=== PATIENT | female | born 1970 | race Caucasian/White ===

== ENCOUNTER → 2020-06-21 | Outpatient (CLI) | payer BC ==
[~2020-06-21] MED LIST: IOHEXOL 240 MG/ML 50ML VIAL. PO ONE; IOHEXOL 300 MG/ML 100ML VIAL. IV ONE
--- NOTE | 2020-06-21 15:36 | RAD ---
CT of the abdomen and pelvis with IV and oral contrast 06/21/2020 INDICATION: Abdominal pain COMPARISON STUDY: None available. TECHNIQUE: Multidetector CT imaging of the abdomen and pelvis was performed following the administrat ion of IV and oral contrast FINDINGS: The visualized lung bases are unremarkable. Liver, gallbladder, spleen, adrenal glands, kid neys, and the pancreas are unremarkable. There is no bowel obstruction. No evidence of acute inflamma tory change involving visualized bowel is seen. Bladder is grossly unremarkable. There is a mixed cys tic and solid appearance of the left ovary which is mildly enlarged measuring 3.7 x 3.0 x 2.7 cm. Fin dings may reflect an ovarian cyst. Recommend ultrasound evaluation. No acute osseous abnormalities ar e identified. IMPRESSION: Mixed cystic and solid appearance of the left ovary which is mildly enlarged.. Correlate with clinical findings and consider ultrasound evaluation as clinically indicated. CT DOSING PQRS STATEMENT: One or more of the following individualized dose reduction techniques were utilized for this examinat ion: 1. Automated exposure control 2. Adjustment of the mA and/or kV according to patient size 3. Use of iterative reconstruction technique Electronically signed by: Calvin Whelan MD (06/21/2020 3:34 PM) [id number]
== END ==
LOC: CT 12:40
PROVIDERS: ATTEND Obstetrics & Gynecology
DX: R10.31 Right lower quadrant pain (principal); R10.2 Pelvic and perineal pain
CPT/HCPCS: 74177; Q9966; Q9967

== ENCOUNTER → 2020-06-28 | Outpatient (CLI) | payer BC ==
--- NOTE | 2020-06-29 09:36 | RAD ---
US PELVIS W/TV History: Reason: L OVARY CYST / Spl. Instructions: / History: Comparison: CT June 21, 2020 Technique: Grayscale and color Doppler imaging of the pelvis was performed using transabdominal and t ransvaginal technique. Findings: The uterus measures 9.5 x 6.4 x 4.7 cm. Uterus has an unremarkable appearance. The endometrial stri pe measures 6 mm. Reportedly bilateral oophorectomy according to the patient. Left adnexal lesion with several complicated cysts. Largest complex cyst measures 1.5 x 0.8 cm and 1. 6 x 1.0 cm. There is Doppler flow similar to ovarian tissue. IMPRESSION: 1. Left adnexal lesion with several complicated cysts, may represent ovary with hemorrhagic follicle s. Patient reports bilateral oophorectomies. Recommend further clinical correlation. Recommend ultras ound follow-up. Electronically signed by: Graham Sears DO (06/29/2020 9:33 AM) [id number]
== END ==
LOC: US 15:15
PROVIDERS: ATTEND Obstetrics & Gynecology
DX: N83.202 Unspecified ovarian cyst, left side (principal)
CPT/HCPCS: 76830; 76856